=== PATIENT | female | born 1980 | race Caucasian/White ===

== ENCOUNTER 2017-01-14 08:27 | Emergency (ER) | payer BC ==
[2017-01-14 09:14] VITALS: TEMP 97.9; O2SAT 99
[2017-01-14] MEDS ORDERED: predniSONE 20 MG TAB PO ONE (09:42)
--- NOTE | 2017-01-14 09:43 | ED.PDOC ---
History of Present Illness - General Chief Complaint: ENT Problem Stated Complaint: sore throat Time Seen by Provider: 01/14/17 08:39 Source: patient Exam Limitations: no limitations - History of Present Illness Initial Comments: the patient is a 36-year-old female presenting to the emergency room secondary tomild nasal drainage as well as a sore throat for the last 24 hours. Minimal cough. No shortness of breath. No rash. No itching. Mild sneezing. She does have intermittent seasonal allergies that is affecting a lot of people around this time. No respiratory illnesses. Timing/Duration: 24 hours Severity: moderate Improving Factors: nothing Worsening Factors: nothing Associated Symptoms: denies symptoms Allergies/Adverse Reactions: Allergies NO KNOWN ALLERGY Allergy (Verified 05/05/12 09:09) Home Medications: Ambulatory Orders B-Complex Vitamins [B Complex] 1 cap PO 12/21/15 Vit W/ Ferrous Fumara [] 1 tab PO 12/21/15 Vit D 12/21/15 Montelukast [Singulair] 10 mg PO DAILY #7 tab 01/14/17 Review of Systems - Review of Systems Constitutional: States: no symptoms reported EENTM: States: nose congestion, throat pain Respiratory: States: no symptoms reported Cardiology: States: no symptoms reported Gastrointestinal/Abdominal: States: no symptoms reported Genitourinary: States: no symptoms reported Musculoskeletal: States: no symptoms reported Skin: States: no symptoms reported Neurological: States: no symptoms reported Endocrine: States: no symptoms reported All other Systems: No Change from Baseline Past Medical History (General) - Patient Medical History Hx Diabetes: Yes - gestational - Vaccination History Hx Tetanus, Diphtheria Vaccination: No Hx Influenza Vaccination: No - Female History Patient : No Family Medical History - Family History Father Family History: Unknown Physical Exam - Physical Exam General Appearance: Alert, Comfortable, No apparent distress Eye Exam: bilateral normal Ears, Nose, Throat: normal ENT inspection, nasal congestion - mild, pharyngeal erythema Neck: non-tender, full range of motion Respiratory: chest non-tender, lungs clear, normal breath sounds, no respiratory distress, no accessory muscle use Cardiovascular/Chest: normal peripheral pulses, regular rate, rhythm, no edema Peripheral Pulses: radial,right: 2+, radial,left: 2+ Gastrointestinal/Abdominal: non tender, soft Rectal Exam: deferred Back Exam: normal inspection, no CVA tenderness Extremity: normal range of motion, non-tender, normal inspection, no pedal edema , normal capillary refill Neurologic: alert, normal mood/affect, oriented x 3 Skin Exam: normal color Comments: Vital Signs - 24 hr 01/14/17 08:30 Temperature 97.9 F Pulse Rate [ 73 pulse ox] Respiratory 20 Rate Blood Pressure 103/69 [left brachial] O2 Sat by Pulse 99 Oximetry Progress - Progress Progress: 01/14/17 09:42 the patient is a 36-year-old female presented secondary to a sore throat and mild runny nose. Rapid strep was negative. Examination is more consistent with an allergy flare that an infectious pharyngitis. The patient is given one dose oral prednisone and will be written for 1 week of Singulair. She should follow-up with her primary care doctor for further evaluation if symptoms persist or worsen. ER warnings were given otherwise. Departure - Departure Clinical Impression: Allergic rhinitis Qualifiers: Chronicity: acute Allergic rhinitis trigger: unspecified Allergic rhinitis seasonality: seasonal Qualified Code(s): J30.2 - Other seasonal allergic rhinitis Disposition: Discharge to Home or Self Care Condition: Fair Departure Forms: ED Discharge - Pt. Copy, Patient Portal Self Enrollment Instructions: Allergies, Respiratory (Alternative Therapy) Diet: regular diet Activity: increase activity as tolerated Referrals: Raffaele Andersen MD [Primary Care Provider] - 1-2 Weeks Prescriptions: Montelukast [Singulair] 10 mg PO DAILY #7 tab Home Medications: Ambulatory Orders B-Complex Vitamins [B Complex] 1 cap PO 12/21/15 Vit W/ Ferrous Fumara [] 1 tab PO 12/21/15 Vit D 12/21/15 Montelukast [Singulair] 10 mg PO DAILY #7 tab 01/14/17 Additional Instructions: the patient is a 36-year-old female presented secondary to a sore throat and mild runny nose. Rapid strep was negative. Examination is more consistent with an allergy flare that an infectious pharyngitis. The patient is given one dose oral prednisone and will be written for 1 week of Singulair. She should follow-up with her primary care doctor for further evaluation if symptoms persist or worsen. ER warnings were given otherwise.
[2017-01-14 09:54] VITALS: BP 106/63
== END 2017-01-14 09:53 | disposition home or self-care (01) ==
LOC: ER 08:27
DX: J30.2 Other seasonal allergic rhinitis (principal)
CPT/HCPCS: 87070; 87651; J7512

== ENCOUNTER → 2019-01-31 | Outpatient (CLI) | payer BC | LOC: GMA MATASK 11:39 | PROVIDERS: ATTEND Family Medicine | DX: E78.1 Pure hyperglyceridemia (principal); E11.9 Type 2 diabetes mellitus without complications ==